=== PATIENT | male | born 1980 | race Caucasian/White ===

== ENCOUNTER 2018-10-16 20:30 | Emergency (ER) | payer MEDICAID ==
--- NOTE | 2018-10-16 20:41 | EDPHY ---
H & P Smoking Status: Never smoked Time Seen by Provider: 10/16/18 20:40 HPI/ROS: Chief complaint. Chest pain HPI. Patient 38-year-old male with left anterior chest discomfort that began while driving at 4:00 p.m. Today. It is described as left anterior radiating left shoulder. He has a heavy and sharp sensation. It is worse with deep breathing and with exertion. No fever cough. No unusual leg pain or swelling. No recent travel since . No nausea or vomiting. No diaphoresis. Aspirin prior to arrival. Patient has also been having migraines for the past 2 weeks with light sensitivity. ROS 10 systems were reviewed and negative with the exception of the elements mentioned in the history of present illness (Jamaal Glass) Past Medical/Surgical History: Asthma, migraines Family history mom had an PR in her 40s and then CVA in her 50s The patient has no history of hypertension, diabetes, dyslipidemia (Jamaal Glass) Social History: , nonsmoker, no alcohol (Jamaal Glass) Physical Exam: General Appearance: Alert well-developed male mild distress vital signs are stable Eyes: Pupils equal and round no pallor or injection. ENT, Mouth: Mucous membranes are moist. Respiratory: There are no retractions, lungs are clear to auscultation. Cardiovascular: Regular rate and rhythm. Gastrointestinal: Abdomen is soft and nontender, no masses, bowel sounds normal. Neurological: Awake and alert, sensory and motor exams grossly normal. Skin: Warm and dry, no rashes. Musculoskeletal: Neck is supple nontender. No tenderness to palpation of the chest Extremities symmetrical, full range of motion. Psychiatric: Patient is oriented X 3, there is no agitation. (Jamaal Glass) Constitutional: Initial Vital Signs Temperature (C) 36.4 C 10/16/18 20:35 Heart Rate 94 10/16/18 20:35 Respiratory Rate 20 10/16/18 20:35 Blood Pressure 137/92 H 10/16/18 20:35 O2 Sat (%) 97 10/16/18 20:35 O2 Delivery Mode Room Air Allergies/Adverse Reactions: Penicillins Allergy (Verified 10/16/18 20:33) Home Medications: Medication Instructions Recorded Inhaler, Assist Devices 10/16/18 Medical Decision Making - Diagnostics EKG Interpretation: EKG interpreted by me shows normal sinus rhythm normal interval and axis. QRS is normal there is no significant ST elevation or depression. No arrhythmia. The rate is 79 (Jamaal Glass) Imaging Results: Imaging Impressions Chest X-Ray 10/16/18 21:00 Impression: Hypoventilatory chest with possible bronchitis/airways disease. Procedures: IV normal saline, monitor (Jamaal Glass) Care Turn Over: care to Dr. Plasencia at 10 pm (Jamaal Glass) I reassessed the patient. His chest pain has improved. We performed 2 hr troponin an EKG which were both negative. He feels well enough to go home. The cause of his pain is unclear at this point and I have explained this to him. His heart score is 2, thus admission is not required in his case. I have put in a referral for [facility] 72 hr Cardiology follow-up. He is happy with this plan. We discussed return precautions. (Josey Self) - Data Points Laboratory Results: Laboratory Results 10/16/18 20:40 10/16/18 20:40 10/16/18 10/16/18 10/16/18 22:59 20:49 20:40 WBC RBC Hgb Hct MCV MCH MCHC RDW Plt Count MPV Neut % (Auto) Lymph % (Auto) Victoria % (Auto) Eos % (Auto) Baso % (Auto) Nucleat RBC Rel Count Absolute Neuts (auto) Absolute Lymphs (auto) Absolute Monos (auto) Absolute Eos (auto) Absolute Basos (auto) Absolute Nucleated RBC Immature Gran % Immature Gran # D-Dimer Sodium 140 mEq/L mEq/L (135-145) Potassium 4.3 mEq/L mEq/L (3.5-5.2) Chloride 106 mEq/L mEq/L (97-110) Carbon Dioxide 23 mEq/l mEq/l (22-31) Anion Gap 11 mEq/L mEq/L (6-14) BUN 22 mg/dL mg/dL (7-23) Creatinine 1.1 mg/dL mg/dL (0.7-1.3) Estimated GFR > 60 Glucose 96 mg/dL mg/dL (70-100) Calcium 9.8 mg/dL mg/dL (8.5-10.4) POC Troponin I 0.00 ng/mL ng/mL 0.00 ng/mL ng/mL (0.00-0.08) (0.00-0.08) 10/16/18 10/16/18 20:40 20:40 WBC 6.91 10^3/uL 10^3/uL (3.80-9.50) RBC 5.22 10^6/uL 10^6/uL (4.40-6.38) Hgb 15.9 g/dL g/dL (13.7-17.5) Hct 47.0 % % (40.0-51.0) MCV 90.0 fL fL (81.5-99.8) MCH 30.5 pg pg (27.9-34.1) MCHC 33.8 g/dL g/dL (32.4-36.7) RDW 12.3 % % (11.5-15.2) Plt Count 164 10^3/uL 10^3/uL (150-400) MPV 12.0 fL H fL (8.7-11.7) Neut % (Auto) 64.5 % % (39.3-74.2) Lymph % (Auto) 25.9 % % (15.0-45.0) Victoria % (Auto) 7.4 % % (4.5-13.0) Eos % (Auto) 1.3 % % (0.6-7.6) Baso % (Auto) 0.6 % % (0.3-1.7) Nucleat RBC Rel Count 0.0 % % (0.0-0.2) Absolute Neuts (auto) 4.46 10^3/uL 10^3/uL (1.70-6.50) Absolute Lymphs (auto) 1.79 10^3/uL 10^3/uL (1.00-3.00) Absolute Monos (auto) 0.51 10^3/uL 10^3/uL (0.30-0.80) Absolute Eos (auto) 0.09 10^3/uL 10^3/uL (0.03-0.40) Absolute Basos (auto) 0.04 10^3/uL 10^3/uL (0.02-0.10) Absolute Nucleated RBC 0.00 10^3/uL 10^3/uL (0-0.01) Immature Gran % 0.3 % % (0.0-1.1) Immature Gran # 0.02 10^3/uL 10^3/uL (0.00-0.10) D-Dimer < 0.27 ug/mLFEU ug/mLFEU (0.00-0.50) Sodium Potassium Chloride Carbon Dioxide Anion Gap BUN Creatinine Estimated GFR Glucose Calcium POC Troponin I Medications Given: Discontinued Medications Sodium Chloride (Ns) 1,000 mls @ 0 mls/hr IV EDNOW ONE; Wide Open PRN Reason: Protocol Stop: 10/16/18 21:21 Last Admin: 10/16/18 21:57 Dose: 1,000 mls Nitroglycerin (Nitrostat) 0.4 mg SL Q5M PRN PRN Reason: Chest Pain Last Admin: 10/16/18 22:04 Dose: 0.4 mg Point of Care Test Results: Chemistry 10/16/18 10/16/18 22:59 20:49 POC Troponin I 0.00 ng/mL ng/mL 0.00 ng/mL ng/mL (0.00-0.08) (0.00-0.08) Departure - Departure Disposition: Home, Routine, Self-Care Clinical Impression: Chest pain Condition: Good Instructions: Chest Pain (ED) Additional Instructions: Please return to the emergency department if your worse in any way. The cardiology clinic should be calling you within a few days for an appointment. You can also call them if you do not hear from them. Referrals: Rosie Struass MD [Primary Care Provider] - As per Instructions Ricki Eng MD [Medical Doctor] - As per Instructions
[2018-10-16] MEDS ORDERED: NS 1,000 ML IV ONE (21:20)
[2018-10-16 21:21] LABS: PLATELET COUNT 164 10^3/uL (150-400)
[2018-10-16] MEDS: NITROGLYCERIN 0.4 MG BTL SL PRN ×2 (21:58→22:04)
[2018-10-16 23:34] VITALS: BP 117/75
--- NOTE | 2018-10-19 06:28 | CPEKG ---
Test Reason : OPEN Blood Pressure : / mmHG Vent. Rate : 079 BPM Atrial Rate : 080 BPM P-R Int : 163 ms QRS Dur : 085 ms QT Int : 338 ms P-R-T Axes : 046 -01 006 degrees QTc Int : 388 ms Sinus rhythm Confirmed by Boy Michaels ([id number]) on 10/19/2018 6:27:32 AM Referred By: Confirmed By:Boy Michaels
== END 2018-10-16 23:25 | disposition home or self-care (01) ==
DX: R07.89 Other chest pain (principal); E11.9 Type 2 diabetes mellitus without complications; E78.5 Hyperlipidemia, unspecified; I10 Essential (primary) hypertension; J45.909 Unspecified asthma, uncomplicated; G43.909 Migraine, unspecified, not intractable, without status migrainosus; Z82.49 Family history of ischemic heart disease and other diseases of the circulatory system
CPT/HCPCS: 84484-ER